=== PATIENT | male | born 1995 | race Caucasian/White ===

== ENCOUNTER 2019-03-07 13:31 | Observation (INO) | payer OTHER ==
[~2019-03-07] VITALS: Ht 172.7 cm; Wt 57.9 kg
[2019-03-07 15:11] LABS: BASOPHILS % (AUTO) 0.8 % (0.0-5.0); EOSINOPHILS % (AUTO) 1.3 % (0.0-8.0); HEMATOCRIT 47.2 % (42-54); LYMPHOCYTES % (AUTO) 30.8 % (21.0-51.0); MEAN CORPUSCULAR HEMOGLOBIN 29.8 pg (27.0-33.0); MEAN CORPUSCULAR HGB CONC 34.2 g/dL (32.0-36.0); MEAN CORPUSCULAR VOLUME 87.2 fL (79-99); MONOCYTES % (AUTO) 8.4 % (3.0-13.0); NEUTROPHILS % (AUTO) 58.7 % (40.0-77.0); PLATELET COUNT (AUTO) 208 K/uL (130-400); RED BLOOD CELL COUNT(AUTO) 5.41 MIL/uL (4.50-6.20); RED CELL DISTRIBUTION WIDTH 13.1 % (11.0-15.5); WHITE BLOOD COUNT (AUTO) 7.3 K/uL (4.8-10.8)
[2019-03-07 15:21] LABS: CREATININE 1.5 mg/dL (0.5-1.5); INR 1.09 (0.85-1.15); PARTIAL THROMBOPLASTIN TIME 28.7 SEC (26.3-35.5); POTASSIUM 3.2 mmol/L (3.5-5.1); PROTHROMBIN TIME 11.4 SEC (9.6-11.6)
[2019-03-07 15:25] LABS: ALBUMIN 4.4 g/dL (3.5-5.0); BILIRUBIN,DIRECT 0.2 mg/dL (0.0-0.3); BILIRUBIN,TOTAL 0.5 mg/dL (0.2-1.0); TOTAL PROTEIN, SERUM 7.7 g/dL (6.0-8.3)
[2019-03-07 21:30] VITALS: BP 121/54
--- NOTE | 2019-03-07 21:30 | NUR ---
ADMIT PT ADMITTED TO ROOM 305,[id number]. WITH RT INDEX FINGER DRESSING DRY AND INTACT. ADMISSION CARE DONE. ADMISSION DATA BASE COMPLETED. PLACED PT NPO. ORIENTED TO ROOM AND UNIT. IN FOR MORE CARE AND MANAGEMENT. Addendum: 03/07/19 at 2148 by JUAN PATINO RN RN Amended: Links added.
[2019-03-07] MEDS ORDERED: ACETAMINOPHEN-CODEINE 300/30MG TAB PO PRN (22:15)
[2019-03-07] MEDS ORDERED: MORPHINE SULFATE 2 MG/ML 1ML SYG IVP PRN (22:15)
[2019-03-07] MEDS: CEFAZOLIN SODIUM 1 GM VIAL IVP SCH (22:26)
[2019-03-08] VITALS (25 sets, daily range): BP systolic 86–154; BP diastolic 45–91
--- NOTE | 2019-03-08 02:00 | NUR ---
ROUNDS PT RESTIGN WELL, FAIRLY ASLEEP. NO DISTRESS NOTED. KEPT UNDISTURBED FOR NOW. WILL MONITOR PT.
[2019-03-08] MEDS: CEFAZOLIN SODIUM 1 GM VIAL IVP SCH (05:57)
--- NOTE | 2019-03-08 07:30 | NUR ---
REPORT REPORT GIVEN TO AM SHIFT NURSE LULY. NURSES'S ROUNDS DONE. FOR MORE CARE AND MANAGEMENT.
[2019-03-08] MEDS ORDERED: LACTATED RINGERS 1000ML 1,000 ML IV ONE ×2 (08:12→08:20)
[2019-03-08] MEDS ORDERED: ONDANSETRON HCL 4 MG/2 ML VIAL ONE (08:33)
[2019-03-08] MEDS ORDERED: SUCCINYLCHOLINE 200MG/10ML SYR ONE (08:33)
[2019-03-08] MEDS ORDERED: PROPOFOL 10 MG/ML 20ML VIAL IV ONE (08:33)
[2019-03-08] MEDS ORDERED: DEXAMETHASONE SOD PHOSPHATE 10MG/ML 1ML VIAL ONE (08:33)
[2019-03-08] MEDS ORDERED: NEOSTIGMINE 5MG/5ML SYR IV ONE ×2 (08:33→09:12)
[2019-03-08] MEDS ORDERED: LIDOCAINE PF 2% 5ML ABBOJECT ONE (08:33)
[2019-03-08] MEDS ORDERED: GLYCOPYRROLATE 1 MG/5 ML SYRINGE ONE ×2 (08:33→09:12)
[2019-03-08] MEDS ORDERED: ROCURONIUM 10MG/1ML SYR 10 MG/ML ML ONE (08:34)
[2019-03-08] MEDS ORDERED: CEFAZOLIN SODIUM 1 GM VIAL ONE (08:53)
[2019-03-08] MEDS ORDERED: FENTANYL CITRATE PF 50 MCG/1 ML 2ML VIAL ONE (08:54)
== END 2019-03-08 13:25 | disposition home or self-care (01) ==
LOC: EDH 13:31 → EDHIP 13:32 → 3BH 21:19
PROVIDERS: ADMIT Surgery Plastic and Reconstructive Surgery; ATTEND Surgery Plastic and Reconstructive Surgery
DX: S62.600A Fracture of unspecified phalanx of right index finger, initial encounter for closed fracture (principal); S61.210A Laceration without foreign body of right index finger without damage to nail, initial encounter; W26.0XXA Contact with knife, initial encounter; Y93.89 Activity, other specified; Y92.89 Other specified places as the place of occurrence of the external cause; Y99.8 Other external cause status; Z79.899 Other long term (current) drug therapy; Z79.01 Long term (current) use of anticoagulants
CPT/HCPCS: 26756; 36415; 73140; 80048; 80076; 85025; 85610; 85730; 96374; 96376; 99284; A4510; A4606; A4930; G0168; G0378 ×23; J0330; J0690 ×3; J1100; J2001; J2405; J2704; J2710 ×2; J3010; J3490 ×2; J7030; J7120 ×2